=== PATIENT | male | born 1935 | race Caucasian/White ===

== ENCOUNTER → 2020-03-01 | Day surgery (SDC) | payer MEDICARE ==
[~2020-03-01] MED LIST: BUSP5TAB PO; FINA5TAB4 PO; GABA800T5 PO; IV RINGERS,LACTATED 1000ML 1,000 ML IV SCH; LEVO150T5 PO; LIDOCAINE 2% PF 5 ML VIAL. ONE; LUBI24CA7 PO; PROPOFOL 10 MG/ML (20ML) VIAL. IV ONE; SIMV40TA18 PO; TRAM50TA PO
--- NOTE | 2020-03-01 14:33 | PDOC4 ---
PROCEDURE Procedure EGD with biopsies/colonoscopy Indications: AM nausea/vomiting, LLQ pain with negative imaging. Meds: per anesthesia Findings: E--Healing reflux, ? grade, at 39cm. G--Diffuse antral erythema, mild. Biopsies done. D--Normal to second portion. MONIK--normal --'Scope advanced to cecum. Prep adequate. Mucosa normal. Scattered d iverticula, sigmoid. No polyps, mass lesions, AVM's. Internal hemorrhoids on retroflex. Dhruv. well. IMP: GERD Diverticulosis Internal hemorrhoids No cause for LLQ pain found. REC: Continue PPI. Resume diet, other meds. Await path. F/u with me in 2 weeks. See urologist and general surgeon re; possible poor bladder emptying and possible inguinal hernia respectively. DORENE HOPKINS MD Mar 01, 2020 14:32
[2020-03-01 14:40] VITALS: BP 102/59
--- NOTE | 2020-03-03 15:19 | PATHOLOGY ---
[facility] Accession Number: [id number] . 01 Material submitted: . stomach - ANTRUM BX . 01 Clinical history: . ABDOMINAL PAIN, EGD . 02 Diagnosis: Gastric biopsy, antrum: - Superficial congestion and slight chronic inflammation. (JPM:senior web applications developer; 03/03/2020) [facility] 03/03/2020 1206 Local . 02 Comment: Sections of the gastric antral biopsy reveal gastric body mucosa showing superficial congestion and slight chronic inflammation. A properly controlled immunoperoxidase stain for Helicobacter is negative for Helicobacter organisms. (JPM:senior web applications developer; 03/03/2020) . Special stain performed: Immunoperoxidase stain for Helicobacter on A1 . 02 Electronically signed: . Tino Cole MD, Pathologist NPI- [id number] . 01 Gross description: . The specimen is received in formalin, labeled "Olman Pyle". No source is listed on the container. The source is listed on the requisition as, "antrum biopsy". Received is a segment of pale lee soft tissue measuring 0.6 cm in maximum dimensions. The specimen is submitted entirely in cassette A1. ([facility]; 03/02/2020) QA/QA 03/02/2020 1559 Local . 02 Pathologist provided ICD-10: K29.50 . 02 CPT . 232296, [id number] Specimen Comment: A courtesy copy of this report has been sent to [phone] Specimen Comment: Report sent to Performed at: 01 [facility] [address], [place] [id number] MD Jeff Burns MD Phone: [phone] Performed at: 02 [facility] [address] [place], [place] [id number] MD Tino Cole MD Phone: [phone]
== END | disposition home or self-care (01) ==
LOC: ENDOS 12:33
PROVIDERS: ATTEND Internal Medicine Gastroenterology
DX: R10.32 Left lower quadrant pain (principal); K57.30 Diverticulosis of large intestine without perforation or abscess without bleeding; K64.0 First degree hemorrhoids; K21.00 Gastro-esophageal reflux disease with esophagitis, without bleeding; K31.89 Other diseases of stomach and duodenum; K29.50 Unspecified chronic gastritis without bleeding; I10 Essential (primary) hypertension; M19.90 Unspecified osteoarthritis, unspecified site; Z79.82 Long term (current) use of aspirin; Z79.899 Other long term (current) drug therapy; Z82.49 Family history of ischemic heart disease and other diseases of the circulatory system; Z91.013 Allergy to seafood; Z88.6 Allergy status to analgesic agent; Z88.8 Allergy status to other drugs, medicaments and biological substances; Z90.49 Acquired absence of other specified parts of digestive tract; Z98.890 Other specified postprocedural states
CPT/HCPCS: 43239; 45378; 88305; 88342; J2704